=== PATIENT | male | born 1960 | race Caucasian/White ===

== ENCOUNTER → 2016-10-01 | Outpatient (CLI) | payer OTHER ==
[~2016-10-01] MED LIST: ASPI1TAB91 PO; CIPR-9 PO; COZA50TA PO; LIPI80TA PO; METO100T PO; METR-1 PO; NEUR300C PO; NOVO7030P2 SQ; TRAZ50TA12 PO
--- NOTE | 2016-10-01 17:04 | RADRPT ---
EXAM DATE/TIME: 10/01/2016 16:33 [facility] COMPARISON: No previous studies available for comparison. INDICATIONS : Right knee pain; fall 3 months ago. MEDICAL HISTORY : None. SURGICAL HISTORY : None. ENCOUNTER: Initial ACUITY: 3 months PAIN SCORE: 8/10 LOCATION: Right knee FINDINGS: Four view examination of the right knee demonstrates no evidence of fracture or dislocation. Bony mi neralization is normal. There are mild to moderate degenerative type changes. There is mild narrowing of the medial and lateral joint compartments. No joint effusion.. The suprapatellar soft tissues sexton ve a normal configuration. There are vascular calcifications in the soft tissues. CONCLUSION: 1. No acute fractures or dislocation. 2. Primary degenerative changes at the knee joint. Aguila Valadez MD on October 01, 2016 at 17:01 Board Certified Radiologist. This report was verified electronically.
--- NOTE | 2016-10-01 17:05 | RADRPT ---
EXAM DATE/TIME: 10/01/2016 16:36 [facility] COMPARISON: No previous studies available for comparison. INDICATIONS : Right lower leg pain; fall 3 months ago. MEDICAL HISTORY : None. SURGICAL HISTORY : None. ENCOUNTER: Initial ACUITY: 3 months PAIN SCORE: 8/10 LOCATION: Right lower leg. FINDINGS: Two view examination of the right tibia demonstrates no evidence of fracture or dislocation. Bony mi neralization is normal. The soft tissue structures are intact. There are vascular calcifications in the soft tissues. CONCLUSION: No acute fracture or joint dislocation. Aguila Valadez MD on October 01, 2016 at 17:02 Board Certified Radiologist. This report was verified electronically.
== END ==
LOC: HRAD 16:16
DX: M79.604 Pain in right leg (principal)
CPT/HCPCS: 73564; 73590

== ENCOUNTER 2017-07-06 23:01 | Emergency (ER) | payer OTHER ==
[~2017-07-06] VITALS: Ht 172.7 cm; Wt 111.0 kg
[~2017-07-06 23:01] MED LIST changes: -ASPI1TAB91 PO; +ASPI81TA16 PO
[2017-07-06 23:23] VITALS: BP 184/88; PULSE 76; RESP 18; TEMP 97.3; O2SAT 97
--- NOTE | 2017-07-07 00:47 | PD ---
HPI Chief Complaint: Hypertension Time Seen by Provider: 00:44 Travel History International Travel<30 days: No Contact w/Intl Traveler<30days: No Traveled to known affect area: No History of Present Illness HPI The patient is a 56 year old male who presents to the [facility] emergency department with a history of confusion and agitation that began at 9PM. His called ambulance services. He was evaluated by the paramedics and his bs was 53. He reports that he has never had problems with low blood sugar in the past. He is on insulin. He denies having an Accu-Chek monitor or checking his blood sugar at home. He ate and then his blood sugar improved however he was told his blood pressure was also high and they recommended that he be transported to the emergency department. He did not want to come to the emergency department, however his family later convinced him to do so. He has had headaches intermittently over the last couple day. He denies having one currently. The patient denies any history of fevers or chills, cough or congestion, neck pain or stiffness, chest pain, abdominal pain, vomiting, diarrhea, urinary symptoms, or other neurologic symptoms. However on review of systems he does report having shortness of breath occasionally. He has an implanted director of cardiac cath lab, however he is unsure why. He also reports being on Eliquis, however he is unsure why. PCP: Dr. Otero. Cardiology: Dr. Serra. 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 The patient is ambulatory with the assistance of a cane, history of hypertension, hyperlipidemia, chronic renal insufficiency. Arthritis: Yes (OA) High Cholesterol: Yes Cerebrovascular Accident: Yes Diabetes: Yes Patient Takes Glucophage: No Diminished Hearing: No Hypertension: Yes Neurologic: Yes (NEUROPATHY) Myocardial Infarction: Yes Renal Failure: Yes Tetanus Vaccination: < 5 Years Influenza Vaccination: Yes Past Surgical History Narrative Surgical The patient's past surgical history is significant for a loop recorder implant. Surgical History: No Previous Surgery Social History Alcohol Use: No (PT DENIES) Tobacco Use: No Substance Use: No Allergies-Medications (Allergen,Severity, Reaction): Coded Allergies: No Known Allergies (Verified Adverse Reaction, Unknown, 07/06/17) Reported Meds & Prescriptions Reported Meds & Active Scripts Active Lipitor (Atorvastatin Calcium) 80 Mg Tab 80 Mg PO HS Reported Novolog Inj (Insulin Aspart) 1,000 Unit/10 Ml Vial 21 Units SQ BID Procardia (Nifedipine) 10 Mg Cap 90 Mg PO ONCE Bumetanide 1 Mg Tab 1 Mg PO DAILY Gabapentin 600 Mg Tab 600 Mg PO TID Tramadol (Tramadol HCl) 50 Mg Tab 50 Mg PO Q4H PRN Eliquis (Apixaban) 2.5 Mg Tab 2.5 Mg PO BID Losartan (Losartan Potassium) 100 Mg Tab 100 Mg PO DAILY Carvedilol 12.5 Mg Tab 12.5 Mg PO BID Review of Systems Except as stated in HPI: all other systems reviewed are Neg General / Constitutional: No: Fever Eyes: No: Visual changes HENT: Positive: Headaches, No: Congestion, Neck Stiffness, Neck Pain Cardiovascular: Positive: Dyspnea on exertion, No: Chest Pain or Discomfort Respiratory: Positive: Shortness of Breath, No: Cough Gastrointestinal: No: Nausea, Vomiting, Diarrhea, Abdominal Pain Genitourinary: No: Dysuria Musculoskeletal: No: Pain Skin: No Rash Neurologic: Positive: Headache, No: Weakness, Focal Abnormalities, Change in Mentation, Slurred Speech, Sensory Disturbance Psychiatric: No: Depression Endocrine: No: Polydipsia Hematologic/Lymphatic: No: Easy Bruising Physical Exam Narrative General: The patient is a well-developed well-nourished male in no acute distress Head and Neck exam: Head is normocephalic atraumatic. Eyes: EOMI, pupils are equal round and reactive to light. Nose: Midline septum with pink mucous membranes Mouth: Dentition unremarkable. Moist mucus membranes. Posterior oropharynx is not erythematous. No tonsillar hypertrophy. Uvula midline. Airway patent. Neck: No palpable lymphadenopathy. No nuchal rigidity. No thyromegaly. Negative Brudzinski, negative Kernig sign. Cardiovascular: Regular rate and rhythm without murmurs, gallops, or rubs. No pulse deficit to the extremities on simultaneous auscultation and palpation of his radial artery. Lungs: Clear to auscultation bilaterally. No wheezes, rhonchi, or rales. Abdomen: Soft, without tenderness to palpation in all 4 quadrants of the abdomen. No guarding, rebound, or rigidity. Normal bowel sounds are audible. No tenderness on palpation of McBurney's point. Extremities: No clubbing or cyanosis. The patient does have trace pedal edema which he reports is chronic and intermittent. 2+ pulses in all 4 extremities. No calf tenderness on palpation. Back: No spinous process tenderness to palpation. No costovertebral angle tenderness to palpation. Neurologic Exam: Cranial nerves 2-12 were intact on exam. Strength is 4/5 in the right upper and right lower extremity related to his prior stroke, strength is 5/5 in the left upper and left lower extremity on exam. No sensory deficits noted. Skin Exam: No rash noted. Intact skin that is warm and dry. Data Data Last Documented VS Vital Signs Date Time Temp Pulse Resp B/P (MAP) Pulse Ox O2 Delivery O2 Flow Rate FiO2 07/07/17 01:30 74 15 219/109 (145) 99 Room Air 07/06/17 23:23 97.3 Orders Orders Electrocardiogram (07/07/17 01:02) Complete Blood Count With Diff (07/07/17:02) Comprehensive Metabolic Panel (07/07/17:02) Prothrombin Time / Inr (Pt) (07/07/17:02) Act Partial Throm Time (Ptt) (07/07/17 01:02) Urinalysis - C+S If Indicated (07/07/17:02) Magnesium (Mg) (07/07/17:02) Chest, Single Ap (07/07/17 01:02) Ct Brain W/O Iv Contrast(Rout) (07/07/17:02) Iv Access Insert/Monitor (07/07/17:02) Ecg Monitoring (07/07/17:02) Oximetry (07/07/17:02) Creatine Kinase (Cpk) (07/07/17:02) Ckmb (Isoenzyme) Profile (07/07/17:02) Troponin I (07/07/17:02) B-Type Natriuretic Peptide (07/07/17:02) CKMB (07/07/17:20) CKMB% (07/07/17 01:20) Labetalol Inj (Trandate Inj) (07/07/17 03:00) Labs Laboratory Tests Test 07/07/17 01:20 07/07/17 01:25 White Blood Count 10.7 TH/MM3 Red Blood Count 4.79 MIL/MM3 Hemoglobin 13.1 GM/DL Hematocrit 39.1 % Mean Corpuscular Volume 81.6 FL Mean Corpuscular Hemoglobin 27.4 PG Mean Corpuscular Hemoglobin Concent 33.5 % Red Cell Distribution Width 14.8 % Platelet Count 149 TH/MM3 Mean Platelet Volume 8.9 FL Neutrophils (%) (Auto) 84.1 % Lymphocytes (%) (Auto) 10.9 % Monocytes (%) (Auto) 3.7 % Eosinophils (%) (Auto) 0.5 % Basophils (%) (Auto) 0.8 % Neutrophils # (Auto) 9.0 TH/MM3 Lymphocytes # (Auto) 1.2 TH/MM3 Monocytes # (Auto) 0.4 TH/MM3 Eosinophils # (Auto) 0.1 TH/MM3 Basophils # (Auto) 0.1 TH/MM3 CBC Comment DIFF FINAL Differential Comment Prothrombin Time 10.8 SEC Prothromb Time International Ratio 1.1 RATIO Activated Partial Thromboplast Time 29.4 SEC Blood Urea Nitrogen 39 MG/DL Creatinine 2.54 MG/DL Random Glucose 217 MG/DL Total Protein 7.7 GM/DL Albumin 3.1 GM/DL Calcium Level 8.5 MG/DL Magnesium Level 1.8 MG/DL Alkaline Phosphatase 74 U/L Aspartate Amino Transf (AST/SGOT) 29 U/L Alanine Aminotransferase (ALT/SGPT) 26 U/L Total Bilirubin 0.5 MG/DL Sodium Level 138 MEQ/L Potassium Level 4.3 MEQ/L Chloride Level 103 MEQ/L Carbon Dioxide Level 26.3 MEQ/L Anion Gap 9 MEQ/L Estimat Glomerular Filtration Rate 26 ML/MIN Total Creatine Kinase 907 U/L Creatine Kinase MB 5.9 NG/ML Creatine Kinase MB % 0.7 % Troponin I 0.04 NG/ML B-Type Natriuretic Peptide 85 PG/ML Urine Color LIGHT-YELLOW Urine Turbidity CLEAR Urine pH 6.0 Urine Specific [place] 1.014 Urine Protein 300 mg/dL Urine Glucose (UA) TRACE mg/dL Urine Ketones NEG mg/dL Urine Occult Blood SMALL Urine Nitrite NEG Urine Bilirubin NEG Urine Urobilinogen LESS THAN 2.0 MG/DL Urine Leukocyte Esterase NEG Urine RBC 4 /hpf Urine WBC 1 /hpf Urine Squamous Epithelial Cells 1 /hpf Urine Bacteria RARE /hpf Urine Hyaline Casts 10 /lpf Urine Mucus FEW /lpf Microscopic Urinalysis Comment CULT NOT INDICATED MDM Medical Decision Making Medical Screen Exam Complete: Yes Emergency Medical Condition: Yes Medical Record Reviewed: Yes Interpretation(s) Last Impressions Head CT 07/07/17101 Signed Impressions: Service Date/Time: Friday, July 07, 2017 01:32 - CONCLUSION: No acute intracranial disease. Bryan France MD Chest X-Ray 07/07/17101 Signed Impressions: Service Date/Time: Friday, July 07, 2017 01:09 - CONCLUSION: No acute disease. Bryan France MD Differential Diagnosis Uncontrolled hypertension related to progression of disease versus renal insufficiency, versus medication noncompliance Narrative Course During the course of the patient's emergency department visit, the patient's history, examination, and differential diagnosis were reviewed with the patient. The patient was placed on a director of cardiac cath lab with oximetry and frequent blood pressure monitoring. The patient had IV access obtained and blood work sent for analysis. The patient had a EKG done on arrival that showed a sinus rhythm heart rate is 70, QRS duration 83 ms, QTC 435 ms, no acute ST segment elevation. The patient was initially provided labetalol 10 mg IV 1. The patient's laboratory studies were reviewed and remarkable for CBC & BMP Diagram 07/07/17 01:20 Total Protein 7.7, Albumin 3.1 L, Calcium Level 8.5, Magnesium Level 1.8, Alkaline Phosphatase 74, Aspartate Amino Transf (AST/SGOT) 29, Alanine Aminotransferase (ALT/SGPT) 26, Total Bilirubin 0.5 The patient's BUN and creatinine are slightly elevated compared to previously at 32 and 2.15 respectively from February 2016 which could be contributing to the patient's elevated blood pressure. The patient is given a copy of this lab to discuss further with his primary care physician. The patient's cardiac enzymes are remarkable for a CPK of 907, MB percent 0.7. The patient was given normal saline 500 mL bolus 1, BNP is 85, PT PTT within normal limits, urinalysis shows 300 protein small occult blood 4 RBCs otherwise unremarkable Radiology studies were reviewed and remarkable for a chest x-ray that shows no acute abnormality, CT scan of the brain shows no acute abnormality. The patient was instructed regarding the importance of following up with his primary care physician regarding his uncontrolled hypertension. The patient has no signs of hypertensive emergency. The patient was instructed to follow- up with his primary care physician in the morning for discussion regarding increasing 1 of his blood pressure medications for better control. The patient is resting comfortably and feels better, is alert and in no distress. The patient's results and examination findings were discussed with the patient. The repeat examination is unremarkable and benign. The history, exam, diagnostic testing, and current condition do not suggest any significant pathology to warrant further testing, continued ED treatment, admission, or surgical evaluation at this point. The vital signs have been stable. The patient does not have uncontrollable pain, intractable vomiting, or other significant symptoms. The patient's condition is stable and appropriate for discharge. The patient will pursue further outpatient evaluation with a primary care physician or other designated or consulting physician as indicated in the discharge instructions. The patient expressed understanding and was agreeable with this plan. Diagnosis Primary Impression: Uncontrolled hypertension Referrals: Primary Care Physician 1 day Patient Instructions: General Instructions, Hypertension (ED) Med/Other Pt SpecificInfo: No Change to Meds Disposition: 01 DISCHARGE HOME Condition: Stable Yulissa Raymond MD Jul 07, 2017 00:47
[2017-07-07] MEDS ORDERED: GABA600T PO (00:51)
[2017-07-07] MEDS ORDERED: TRAM50TA PO (00:51)
[2017-07-07] MEDS ORDERED: APIX2.5T PO (00:51)
[2017-07-07] MEDS ORDERED: LOSA100T PO (00:51)
[2017-07-07] MEDS ORDERED: NIFE10 PO (00:51)
[2017-07-07] MEDS ORDERED: BUME1TAB PO (00:51)
[2017-07-07] MEDS ORDERED: CARV12.52 PO (00:51)
[2017-07-07] MEDS ORDERED: NOVOLOGP2 SQ (00:51)
--- NOTE | 2017-07-07 01:25 | RADRPT ---
EXAM DATE/TIME: 07/07/2017 01:09 [facility] COMPARISON: CHEST SINGLE AP, March 16, 2016, 13:35. INDICATIONS : Shortness of breath. MEDICAL HISTORY : Hypertension. SURGICAL HISTORY : Loop recorder. ENCOUNTER: Initial ACUITY: 1 day PAIN SCORE: 0/10 LOCATION: Bilateral chest FINDINGS: A single view of the chest demonstrates the lungs to be symmetrically aerated without evidence of mas s, infiltrate or effusion. The cardiomediastinal contours are unremarkable. Loop recorder device see n along left lower chest. Osseous structures are intact. CONCLUSION: No acute disease. Bryan France MD on July 07, 2017 at 1:23 Board Certified Radiologist. This report was verified electronically.
[2017-07-07 01:29] VITALS: RESP 15; O2SAT 99
[2017-07-07 01:30] VITALS: BP 219/109; PULSE 74; RESP 15; O2SAT 99
[2017-07-07 01:41] LABS: BASOPHIL # 0.1 TH/MM3 (0-0.2); BASOPHIL % 0.8 % (0.0-2.0); EOSINOPHIL # 0.1 TH/MM3 (0-0.4); EOSINOPHIL % 0.5 % (0.0-4.0); HEMATOCRIT 39.1 % (39.0-51.0); HEMOGLOBIN 13.1 GM/DL (13.0-17.0); LYMPH % 10.9 % (9.0-44.0); LYMPHOCYTE # 1.2 TH/MM3 (1.0-4.8); MEAN CELL VOLUME 81.6 FL (80.0-100.0); MEAN CORPUSCULAR HEMOGLOBIN 27.4 PG (27.0-34.0); MEAN CORPUSCULAR HGB CONC 33.5 % (32.0-36.0); MEAN PLATELET VOLUME 8.9 FL (7.0-11.0); MONO % 3.7 % (0.0-8.0); MONOCYTE # 0.4 TH/MM3 (0-0.9); NEUT % 84.1 % (16.0-70.0); PLATELET COUNT 149 TH/MM3 (150-450); RED BLOOD COUNT 4.79 MIL/MM3 (4.50-5.90); RED CELL DISTRIBUTION WIDTH 14.8 % (11.6-17.2); WHITE BLOOD COUNT 10.7 TH/MM3 (4.0-11.0)
[2017-07-07 01:52] LABS: BACTERIA, URINE RARE /hpf; BILIRUBIN, URINE NEG (NEG); BLOOD, URINE SMALL (NEG); GLUCOSE,URINE TRACE mg/dL (NEG); HYALINE CAST, URINE 10 /lpf (RARE); KETONE, URINE NEG (NEG); MUCUS URINE FEW /lpf (OCC); NITRITE,URINE NEG (NEG); SQUAMOUS EPITHELIAL CELL URINE 1 /hpf (0-5); URINE COLOR LIGHT-YELLOW (YELLW/STRAW); URINE LEUKOCYTE ESTERASE NEG (NEG)
[2017-07-07 01:56] LABS: INTERNATIONAL NORMALIZED RATIO 1.1 RATIO; PROTHROMBIN TIME - PATIENT 10.8 SEC (9.8-11.6)
[2017-07-07 01:59] LABS: ALBUMIN 3.1 GM/DL (3.4-5.0); ALT (GPT) 26 U/L (12-78); AST (GOT) 29 U/L (15-37); BICARBONATE 26.3 MEQ/L (21.0-32.0); BLOOD UREA NITROGEN 39 MG/DL (7-18); CALCIUM 8.5 MG/DL (8.5-10.1); CHLORIDE 103 MEQ/L (98-107); CREATININE 2.54 MG/DL (0.60-1.30); GLOMERULAR FILTRATION RATE 26 ML/MIN (>89); GLUCOSE,RANDOM 217 MG/DL (74-106); MAGNESIUM 1.8 MG/DL (1.5-2.5); SODIUM (NA) 138 MEQ/L (136-145)
[2017-07-07 02:03] LABS: ALKALINE PHOSPHATASE 74 U/L (45-117); TOTAL BILIRUBIN ADULT 0.5 MG/DL (0.2-1.0); TOTAL PROTEIN 7.7 GM/DL (6.4-8.2); TROPONIN I 0.04 NG/ML (0.02-0.05)
--- NOTE | 2017-07-07 02:16 | RADRPT ---
EXAM DATE/TIME: 07/07/2017 01:32 [facility] COMPARISON: No previous studies available for comparison. INDICATIONS : Cephalgia. RADIATION DOSE: 56.77 CTDIvol (mGy) MEDICAL HISTORY : Stroke. Hypertension. Cardiovascular disease SURGICAL HISTORY : None. ENCOUNTER: Initial ACUITY: 1 day PAIN SCALE: 4/10 LOCATION: cranial TECHNIQUE: Multiple contiguous axial images were obtained of the head. Using automated exposure control and adj ustment of the mA and/or kV according to patient size, radiation dose was kept as low as reasonably a chievable to obtain optimal diagnostic quality images. DICOM format image data is available electro nically for review and comparison. FINDINGS: CEREBRUM: The ventricles are normal for age. No evidence of midline shift, mass lesion, hemorrhage or acute in farction. No extra-axial fluid collections are seen. POSTERIOR FOSSA: The cerebellum and brainstem are intact. The 4th ventricle is midline. The cerebellopontine angle i s unremarkable. EXTRACRANIAL: The visualized portion of the orbits is intact. SKULL: The calvaria is intact. No evidence of skull fracture. CONCLUSION: No acute intracranial disease. Bryan France MD on July 07, 2017 at 2:14 Board Certified Radiologist. This report was verified electronically.
[2017-07-07] MEDS ORDERED: LABETALOL HCL 100 MG/20 ML VIAL IV PUSH ONE (03:00)
[2017-07-07 03:59] VITALS: BP 198/90; PULSE 74; RESP 16; O2SAT 100
[2017-07-07] MEDS ORDERED: SODIUM CHLORID 0.9% 500 ML INJ 500 ML IV ONE (04:00)
[2017-07-07 04:54] VITALS: BP 196/94; PULSE 76; RESP 15; O2SAT 100
--- NOTE | 2017-07-07 21:18 | EKG ---
Date Performed: 07/07/2017 Time Performed: 01:45:50 PTAGE: 56 years EKG: Sinus rhythm NONSPECIFIC T-WAVE ABNORMALITY ABNORMAL ECG PREVIOUS TRACING : 03/16/2016 13.07 Since the previous tracing, no significant change noted DOCTOR: Davy Gibson Interpretating Date/Time 07/07/2017 21:16:35
== END 2017-07-07 06:24 | disposition home or self-care (01) ==
LOC: NEPE 23:01
DX: I10 Essential (primary) hypertension (principal); R51 Headache; R06.02 Shortness of breath; R94.31 Abnormal electrocardiogram [ECG] [EKG]; I69.951 Hemiplegia and hemiparesis following unspecified cerebrovascular disease affecting right dominant side; I12.9 Hypertensive chronic kidney disease with stage 1 through stage 4 chronic kidney disease, or unspecified chronic kidney disease; E11.22 Type 2 diabetes mellitus with diabetic chronic kidney disease; N18.9 Chronic kidney disease, unspecified; E11.40 Type 2 diabetes mellitus with diabetic neuropathy, unspecified
CPT/HCPCS: 70450; 71045; 80053; 81001; 82550; 82552; 83735; 83880; 84484; 85025; 85610; 85730; 93005; 96361; 96374; 99285; J7040

== ENCOUNTER 2018-02-02 10:39 | Observation (INO) ==
--- NOTE | 2018-02-02 11:12 | ED ---
HPI General Chief complaint: Chest Pain Stated complaint: chest pain Time Seen by Provider: 02/02/18 10:46 History of Present Illness HPI narrative: Patient 57-year-old male with a history of NSTEMI in 2016, COPD presents the emergency department for evaluation of shortness of breath and a vague chest discomfort. States his been going on for the past 3 days. Also endorses a cough, worse when he is laying down. Patient also endorses some significant leg swelling states is been going on for a while on and off, typically worse at the end of the day. States symptoms are moderate, for the past few days, context as above, associated signs symptoms as above. Related Data Home Medications Medication Instructions Recorded Confirmed apixaban [Eliquis] 2.5 mg PO BID 02/02/18 02/02/18 atorvastatin 80 mg PO DAILY 02/02/18 02/02/18 bumetanide 1 mg PO DAILY 02/02/18 02/02/18 carvedilol 12.5 mg PO BID 02/02/18 02/02/18 gabapentin 600 mg PO TID 02/02/18 02/02/18 insulin aspart U-100 [Novolog 21 unit SUBCUT BID 02/02/18 02/02/18 U-100 Insulin aspart] losartan 100 mg PO DAILY 02/02/18 02/02/18 nifedipine 90 mg PO DAILY 02/02/18 02/02/18 Allergies Allergy/AdvReac Type Severity Reaction Status Date / Time No Known Allergies Allergy Verified 02/02/18 10:45 Review of Systems ROS: all other systems reviewed are negative [facility] Medical History Medical History CVA (cerebral vascular accident) (Acute) Depression (Acute) Diabetes (Acute) HTN (hypertension) (Acute) Hyperlipidemia (Acute) NSTEMI (non-ST elevated myocardial infarction) (Acute) Renal insufficiency (Acute) Suicidal ideations (Acute) Surgical History Surgical History History of loop recorder (Acute) Social History Social History Substance History: No History of Abuse Second Hand Smoke Exposure: No Smoking Status: Never smoker How Often Do You Have a Drink Containing Alcohol: Monthly or less Recent Travel in [facility] within the Last 8 Weeks: No Recent Out of Country Travel within the Last 8 Weeks: No Immunization History Tetanus Immunization: <5 Years Exam Const General: healthy appearing and no acute distress HENMT Face and sinus: normal facial exam Eyes General: appearance normal, both eyes and all related structures Pupils: PERRL Chest Chest: normal inspection of the chest Resp Effort & Inspection: normal respiratory effort Auscultation: no rhonchi and no wheezes Cardio Rate: regular rate Rhythm: regular rhythm GI Inspection: non-distended Palpation: soft and nontender Skin General: no rashes or lesions noted Neuro General: alert, awake, oriented x3 and no focal motor deficits Extrem Other: 2-3+ pitting edema to groin bilaterally Psych Affect: normal affect Course Initial Documented Vital Signs Temperature 98.7 F 02/02/18 10:50 Pulse Rate 80 02/02/18 10:50 Blood Pressure 176/101 H 02/02/18 10:50 Pulse Oximetry 96 02/02/18 10:50 Last Documented Vital Signs Temperature 97.7 F 02/03/18 08:00 Pulse Rate 67 02/03/18 08:00 Respiratory Rate 16 02/03/18 08:00 Blood Pressure 190/94 H 02/03/18 08:00 Pulse Oximetry 99 02/03/18 08:00 Sign Out Sign Out Data: Patient Sign Out occurred on 02/02/18 at 15:16. Patient's care was discussed, and care was transferred from Ron Astorga MD to Lizeth Duvall DO. Sign Out Comment: Follow-up VQ scan, patient probably needs observation status for chest pain, consider chest pain center or admission given pedal edema. Last updated by Ron Astorga MD at 02/02/18 15:08 Post-Handoff Eval: Patient received during sign-out from Dr. Astorga; patient is a 57yM presenting with left-sided chest pain and dyspnea/ orthopnea for the past several weeks, worse over the past 2-3 days. He has a history of NSTEMI in 2016 and was seen by Dr. Long but says that he hasn't followed up for a while because of transportation issues. He reported that his chest pain resolved with nitroglycerin. His workup shows trop negative x 2, creatinine at baseline, CXR and US duplex negative, and VQ scan shows low likelihood of PE. Will place patient in chest pain center for further workup. Patient understands and agrees. Clinical Decision Support HEART Score Questions History: Highly suspicious EKG: Normal Age: 45-64 years Risk Factors: 1-2 Risk Factors Initial Troponin: Normal Limit Heart Score HEART Score: 4 Medical Decision Making MDM Narrative Medical decision making narrative: 57yM presenting with chest pain, will keep for chest pain observation Medical Screen Exam Complete: Yes Emergency Medical Condition: Yes Lab Data Result diagrams: 02/02/18 11:10 02/02/18 11:10 Lab Results 02/02/18 02/02/18 02/02/18 Range/Units 11:10 11:10 11:10 WBC 7.3 (4.0-11.0) th/mm3 RBC 4.51 (4.50-5.90) mil/mm3 Hgb 12.9 L (13.0-17.0) gm/dL Hct 38.9 L (39.0-51.0) % MCV 86.4 (80.0-100.0) fL MCH 28.6 (27.0-34.0) pg MCHC 33.1 (32.0-36.0) % RDW 14.9 (11.6-17.2) % Plt Count 140 L (150-450) th/mm3 MPV 8.7 (7.0-11.0) fL Neut % (Auto) 70.2 H (16.0-70.0) % Lymph % (Auto) 20.1 (9.0-44.0) % [place]ord % (Auto) 6.8 (0.0-8.0) % Eos % (Auto) 2.3 (0.0-4.0) % Baso % (Auto) 0.6 (0.0-2.0) % Neut # (Auto) 5.1 (1.8-7.7) th/mm3 Lymph # (Auto) 1.5 (1.0-4.8) th/mm3 [place]ackelford # (Auto) 0.5 (0.0-0.9) th/mm3 Eos # (Auto) 0.2 (0.0-0.4) th/mm3 Baso # (Auto) 0.0 (0.0-0.2) th/mm3 WBC Differential . Differential Comment Auto diff final D-Dimer Quant (PE/DVT) 1.32 H (0.00-0.50) mg/L FEU Sodium 143 (136-145) meq/L Potassium 4.6 (3.5-5.1) meq/L Chloride 108 H (98-107) meq/L Carbon Dioxide 27.0 (21.0-32.0) meq/L Anion Gap 8 (5-15) meq/L BUN 27 H (7-18) mg/dL Creatinine 1.90 H (0.60-1.30) mg/dL Estimated GFR 44 L (>89) mL/min POC Glucose (68-110) mg/dl Random Glucose 140 H (74-106) mg/dL Calcium 8.8 (8.5-10.1) mg/dL Total Bilirubin 0.5 (0.2-1.0) mg/dL AST 29 (15-37) U/L ALT 27 (12-78) U/L Alkaline Phosphatase 78 (45-117) U/L Total Creatine Kinase (39-308) U/L CK-MB (CK-2) (0.5-3.6) ng/mL CK-MB (CK-2) % (0.0-4.0) % Troponin I 0.03 (0.02-0.05) ng/mL B-Natriuretic Peptide (0-100) pg/mL Total Protein 7.7 (6.4-8.2) g/dL Albumin 3.2 L (3.4-5.0) g/dL 02/02/18 02/02/18 02/02/18 Range/Units 11:56 14:01 17:14 WBC (4.0-11.0) th/mm3 RBC (4.50-5.90) mil/mm3 Hgb (13.0-17.0) gm/dL Hct (39.0-51.0) % MCV (80.0-100.0) fL MCH (27.0-34.0) pg MCHC (32.0-36.0) % RDW (11.6-17.2) % Plt Count (150-450) th/mm3 MPV (7.0-11.0) fL Neut % (Auto) (16.0-70.0) % Lymph % (Auto) (9.0-44.0) % Shackelford % (Auto) (0.0-8.0) % Eos % (Auto) (0.0-4.0) % Baso % (Auto) (0.0-2.0) % Neut # (Auto) (1.8-7.7) th/mm3 Lymph # (Auto) (1.0-4.8) th/mm3 [place]ackelford # (Auto) (0.0-0.9) th/mm3 Eos # (Auto) (0.0-0.4) th/mm3 Baso # (Auto) (0.0-0.2) th/mm3 WBC Differential Differential Comment D-Dimer Quant (PE/DVT) (0.00-0.50) mg/L FEU Sodium (136-145) meq/L Potassium (3.5-5.1) meq/L Chloride (98-107) meq/L Carbon Dioxide (21.0-32.0) meq/L Anion Gap (5-15) meq/L BUN (7-18) mg/dL Creatinine (0.60-1.30) mg/dL Estimated GFR (>89) mL/min POC Glucose (68-110) mg/dl Random Glucose (74-106) mg/dL Calcium (8.5-10.1) mg/dL Total Bilirubin (0.2-1.0) mg/dL AST (15-37) U/L ALT (12-78) U/L Alkaline Phosphatase (45-117) U/L Total Creatine Kinase 626 H (39-308) U/L CK-MB (CK-2) 3.1 (0.5-3.6) ng/mL CK-MB (CK-2) % 0.5 (0.0-4.0) % Troponin I 0.03 0.04 (0.02-0.05) ng/mL B-Natriuretic Peptide 86 (0-100) pg/mL Total Protein (6.4-8.2) g/dL Albumin (3.4-5.0) g/dL 02/02/18 02/03/18 Range/Units 21:14 08:18 WBC (4.0-11.0) th/mm3 RBC (4.50-5.90) mil/mm3 Hgb (13.0-17.0) gm/dL Hct (39.0-51.0) % MCV (80.0-100.0) fL MCH (27.0-34.0) pg MCHC (32.0-36.0) % RDW (11.6-17.2) % Plt Count (150-450) th/mm3 MPV (7.0-11.0) fL Neut % (Auto) (16.0-70.0) % Lymph % (Auto) (9.0-44.0) % [place]ord % (Auto) (0.0-8.0) % Eos % (Auto) (0.0-4.0) % Baso % (Auto) (0.0-2.0) % Neut # (Auto) (1.8-7.7) th/mm3 Lymph # (Auto) (1.0-4.8) th/mm3 [place]ack[place]ord # (Auto) (0.0-0.9) th/mm3 Eos # (Auto) (0.0-0.4) th/mm3 Baso # (Auto) (0.0-0.2) th/mm3 WBC Differential Differential Comment D-Dimer Quant (PE/DVT) (0.00-0.50) mg/L FEU Sodium (136-145) meq/L Potassium (3.5-5.1) meq/L Chloride (98-107) meq/L Carbon Dioxide (21.0-32.0) meq/L Anion Gap (5-15) meq/L BUN (7-18) mg/dL Creatinine (0.60-1.30) mg/dL Estimated GFR (>89) mL/min POC Glucose 209 H 156 H (68-110) mg/dl Random Glucose (74-106) mg/dL Calcium (8.5-10.1) mg/dL Total Bilirubin (0.2-1.0) mg/dL AST (15-37) U/L ALT (12-78) U/L Alkaline Phosphatase (45-117) U/L Total Creatine Kinase (39-308) U/L CK-MB (CK-2) (0.5-3.6) ng/mL CK-MB (CK-2) % (0.0-4.0) % Troponin I (0.02-0.05) ng/mL B-Natriuretic Peptide (0-100) pg/mL Total Protein (6.4-8.2) g/dL Albumin (3.4-5.0) g/dL Imaging Data Radiologist's impression: Chest X-Ray 02/02/18 11:05 CONCLUSION: 1. No acute abnormality or significant interval change. Venous Doppler Study 02/02/18 12:10 CONCLUSION: 1. No sonographic evidence for lower extremity DVT. Pulmonary Perfusion Imaging 02/02/18 12:28 CONCLUSION: Low probability of pulmonary embolism. ECG Data Attestation: I personally reviewed and interpreted this ECG as follows: Interpretation: Rate: 74 BPM Rhythm: Sinus Webster: Normal Intervals: Normal intervals, no blocks, QTc 390 ms Q waves: None T waves: Upright, no inversions ST segments: No elevations or depressions Impression: Non-specific EKG, no changes as compared to EKG from earlier today Discharge Plan Discharge Disposition Patient Disposition: 30 Still Patient Discharge Condition Condition: Stable Discharge Details Diagnosis: Chest pain Physicians Team ED Provider: Lizeth Duvall Primary Care Provider: Primary Care Physici,No Attending Provider: Miki Decker Other Providers: Edson Higgins Ricardy Status ED Status: Left Department Discharge Information Discharge Date/Time: 02/02/18 18:00
[2018-02-02 11:26] LABS: Baso % (Auto) 0.6 % (0.0-2.0); Eos # (Auto) 0.2 th/mm3 (0.0-0.4); Eos % (Auto) 2.3 % (0.0-4.0); Hematocrit 38.9 % (39.0-51.0); Hemoglobin 12.9 gm/dL (13.0-17.0); Lymph # (Auto) 1.5 th/mm3 (1.0-4.8); Lymph % (Auto) 20.1 % (9.0-44.0); Mean Corpuscular HGB Conc 33.1 % (32.0-36.0); Mean Corpuscular Hemoglobin 28.6 pg (27.0-34.0); Mean Corpuscular Volume 86.4 fL (80.0-100.0); Mean Platelet Volume 8.7 fL (7.0-11.0); Mono # (Auto) 0.5 th/mm3 (0.0-0.9); Mono % (Auto) 6.8 % (0.0-8.0); Neut # (Auto) 5.1 th/mm3 (1.8-7.7); Neut % (Auto) 70.2 % (16.0-70.0); Platelet Count 140 th/mm3 (150-450); Red Blood Count 4.51 mil/mm3 (4.50-5.90); Red Cell Distribution Width 14.9 % (11.6-17.2); White Blood Count 7.3 th/mm3 (4.0-11.0)
[2018-02-02 11:47] LABS: Alanine Aminotransferase 27 U/L (12-78); Albumin 3.2 g/dL (3.4-5.0); Anion Gap 8 meq/L (5-15); Aspartate Aminotransferase 29 U/L (15-37); Blood Urea Nitrogen 27 mg/dL (7-18); Calcium 8.8 mg/dL (8.5-10.1); Chloride 108 meq/L (98-107); Glomerular Filtration Rate 44 mL/min (>89); Glucose,Random 140 mg/dL (74-106); Potassium 4.6 meq/L (3.5-5.1); Sodium 143 meq/L (136-145)
[2018-02-02 11:51] LABS: Alkaline Phosphatase 78 U/L (45-117); Total Protein 7.7 g/dL (6.4-8.2); Troponin I 0.03 ng/mL (0.02-0.05)
--- NOTE | 2018-02-02 11:59 | XR ---
EXAM DATE: 02/02/2018 11:46 AM EST AGE/SEX: 57 years / Male INDICATIONS: Chest tightness post heart attack 2 weeks ago. CLINICAL DATA: This is the patient's initial encounter. Patient reports that signs and symptoms have been present for 1 day and indicates a pain score of 7/10. MEDICAL/SURGICAL HISTORY: . Stroke. Hypertension. Cardiovascular disease None. COMPARISON: [facility] [place], CHEST SINGLE AP, 07/07/2017. . FINDINGS: No new focal pleural or parenchymal opacities. The cardiomediastinal contours are unremarkable. Osse ous structures are intact. CONCLUSION: 1. No acute abnormality or significant interval change. Electronically signed by: Kenneth Wooten MD 02/02/2018 11:58 AM EST
--- NOTE | 2018-02-02 13:29 | US ---
EXAM DATE: 02/02/2018 1:26 PM EST AGE/SEX: 57 years / Male INDICATIONS: Bilateral leg pain and swelling. CLINICAL DATA: This is the patient's initial encounter. Patient reports that signs and symptoms have been present for 1 month and indicates a pain score of 8/10. MEDICAL/SURGICAL HISTORY: Congestive heart failure. Chronic obstructive pulmonary disease. Di abetes. CVA. Myocardial infarct. Anticoagulant therapy, Eliquis. . Loop recorder. COMPARISON: No prior exams available for comparison. TECHNIQUE: Venous ultrasound of both lower extremities was performed from the inguinal ligament to t he proximal calf. Real-time, color Doppler and spectral tracing, compression and augmentation techni ques were used. FINDINGS: Right Leg: Normal compression of the deep venous system from the inguinal region to the proximal kathy f. No echogenic clot is seen. Normal response of the venous system to augmentation and respiration. Left Leg: Normal compression of the deep venous system from the inguinal region to the proximal calf . No echogenic clot is seen. Normal response of the venous system to augmentation and respiration. Other: None. CONCLUSION: 1. No sonographic evidence for lower extremity DVT. Electronically signed by: Kenneth Wooten MD 02/02/2018 1:28 PM EST
[2018-02-02] MEDS ORDERED: Carvedilol 12.5 MG Tablet PO ONE (13:51)
--- NOTE | 2018-02-02 15:33 | NM ---
EXAM DATE: 02/02/2018 3:22 PM EST AGE/SEX: 57 years / Male INDICATIONS: Dyspnea with chest pain. CLINICAL DATA: This is the patient's initial encounter. Patient reports that signs and symptoms have been present for 3 days and indicates a pain score of 0/10. MEDICAL/SURGICAL HISTORY: Chronic obstructive pulmonary disease. Myocardial infarction. Conge stive heart failure. Hypertension, diabetes and stroke. . Loop recorder. COMPARISON: No prior exams available for comparison. DOSE: 1.1 mCi Tc99m DTPA aerosol 8.8 mCi Tc99m MAA IV TECHNIQUE: Following five minutes of tidal breathing of DTPA aerosol, planar images of the lungs wer e performed in eight projections. The patient was then injected with MAA, and eight-view perfusion s can was performed. FINDINGS: There is a homogeneous pattern of aerosol delivery to the periphery of both lungs. No focal ventilat ory defects are seen. The perfusion lung scan demonstrates a homogenous pattern of uptake in both lungs. No segmental or s ubsegmental defects are seen. CONCLUSION: Low probability of pulmonary embolism. Electronically signed by: Rich Rush MD 02/02/2018 3:32 PM EST
[2018-02-02] MEDS: Aspirin 325 MG Tablet PO SCH (15:55)
[2018-02-02] MEDS ORDERED: Labetalol HCl Inj 100 MG/20 ML Vial IV.PUSH ONE (16:30)
[2018-02-02] MEDS ORDERED: Acetaminophen 500 MG Tablet PO PRN (16:44)
[2018-02-02] MEDS ORDERED: Morphine Inj 4 MG/ML Vial IV.PUSH PRN (17:11)
[2018-02-02] MEDS ORDERED: Dextrose 50% in Water 50 ML Vial IV.PUSH PRN (17:14)
--- NOTE | 2018-02-02 17:41 | P.HPCA ---
History of Present Illness Primary Care Physician: No Primary Care Physician Chief Complaint: Chest and right leg pain History of Present Illness: 57 year old male with history of hypertension, diabetes, hyperlipidemia, chronic pain, and CVA with right sided deficit presents to ER for further evaluation of chest pain, gasping for breath that awakens him from sleep and worsening chronic right leg pain. Onset x3 last morning. Awaken each morning with sensation of "gasping for breath" with accompanied chest pain. Location left anterior chest. Characterized as "thumping." Duration 10-15 minutes, reports chest discomfort resolves once breathing stabilizes. No associated symptoms of nausea, vomiting, dyspnea, or diaphoresis. Denies other times of chest discomfort or dyspnea. Endorses similar sensation of dyspnea/chest discomfort "awhile ago" states "I didn't think much of it." In regards of right leg pain, endorses chronic right leg for "at least one year." States he does not have the money for ordered injection for chronic leg pain. States he is prescribed Tramadol for pain, but "it does work at all." Patient is tearful during exam, appears depressed. Reports currently situational stress over the last month. Endorses recent suicidal ideations without plan. No recent illness, injury, or fever. Intermittent chills. Past cardiac testing No recent cardiac testing. Reports nuclear cardiac testing approximately one year ago reports to be normal. Denies ever having a cardiac catheterization. Follows with Dr. Guillen. Due to multiple insurance changes, has not recently seen a pattern technician. Documented NSTEMI February 2016, felt to be related to hypertension 03/17/2016 Echocardiogram-systolic function normal. EF 55-60%. Social history Known hypertension, hyperlipidemia, and diabetes. No known CAD, NSTEMI 2015 possibly related to elevated blood pressure. Ambulated with a cane. Recently from and in transition to moving in with sister. - Diagnosis (1) Atypical chest pain (2) Hypertension (3) Type 2 diabetes mellitus (4) Chronic pain (5) Suicidal ideation (6) Hyperlipemia (7) Renal insufficiency Review of Systems All other systems reviewed negative except as stated in HPI 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, Gate Agent / EMT - Medical History Medical History: Medical History (Last Updated 02/02/18 @ 17:19 by MYCHAL Nino) CVA (cerebral vascular accident) Depression Diabetes HTN (hypertension) Hyperlipidemia NSTEMI (non-ST elevated myocardial infarction) Renal insufficiency Suicidal ideations - Surgical History Surgical History: Surgical History (Last Reviewed 02/02/18 @ 17:19 by MYCHAL Nino) History of loop recorder - Tobacco History Second Hand Smoke Exposure: No Tobacco Use In Past 30 Days: No Smoking Status: Never smoker - Alcohol History How Often Do You Have a Drink Containing Alcohol: Monthly or less - Substance Use History Substance History: No History of Abuse - Travel History Recent Travel in the [place] Within the Last 8 Weeks: No Recent Travel Out of the Country Within the Last 8 Weeks: No - Immunization History Tetanus Immunization: <5 Years Medications and Allergies Active Medications: Active Medications Acetaminophen (Tylenol) 500 mg PO Q4H PRN PRN Reason: HEADACHE Aspirin (Aspirin) 325 mg PO DAILY KATELYN Last Admin: 02/02/18 15:55 Dose: Not Given Clonidine HCl (Catapres) 0.2 mg PO Q6H PRN PRN Reason: SYS BP GREATER THAN 180 MMHG Dextrose (D50w Vial) 50 ml IV.PUSH UNSCH PRN PRN Reason: PER HYPOGLYCEMIA PROTOCOL Glucagon (Glucagon Inj) 1 mg OTHER PRN PRN PRN Reason: for Hypoglycemia Protocol Insulin Aspart (Novolog Insulin Correctional Sugar Inj) 0 unit SQ ACHS KATELYN; Protocol Morphine Sulfate (Morphine Inj) 4 mg IV.PUSH Q4H PRN PRN Reason: Acute Pain Nitroglycerin (Nitrostat Sl) 0.4 mg SL Q5M PRN PRN Reason: CHEST PAIN Ondansetron HCl (Zofran Inj) 4 mg IV.PUSH Q6H PRN PRN Reason: NAUSEA Sodium Chloride (Ns Flush) 2 ml IV.FLUSH UNSCH PRN PRN Reason: FLUSH AFTER USING IV ACCESS Sodium Chloride (Ns Flush) 2 ml IV.FLUSH BID KATELYN Sodium Chloride (Ns Flush) 2 ml IV.FLUSH PRN PRN PRN Reason: FLUSH AFTER USING IV ACCESS Allergies Allergy/AdvReac Type Severity Reaction Status Date / Time No Known Allergies Allergy Verified 02/02/18 10:45 Home Medications Medication Instructions Recorded Confirmed Type apixaban [Eliquis] 2.5 mg PO BID 02/02/18 02/02/18 History atorvastatin 80 mg PO DAILY 02/02/18 02/02/18 History bumetanide 1 mg PO DAILY 02/02/18 02/02/18 History carvedilol 12.5 mg PO BID 02/02/18 02/02/18 History gabapentin 600 mg PO TID 02/02/18 02/02/18 History insulin aspart U-100 [Novolog 21 unit SUBCUT BID 02/02/18 02/02/18 History U-100 Insulin aspart] losartan 100 mg PO DAILY 02/02/18 02/02/18 History nifedipine 90 mg PO DAILY 02/02/18 02/02/18 History Exam Vital signs: Vital Signs 02/02/18 10:50 02/02/18 11:41 02/02/18 13:00 Temperature 98.7 F Pulse Rate 80 68 78 Respiratory Rate 21 Blood Pressure 176/101 H 201/92 H Pulse Oximetry 96 96 100 02/02/18 13:35 02/02/18 14:34 02/02/18 15:28 Temperature Pulse Rate 77 68 Respiratory Rate 19 Blood Pressure 193/95 H 183/88 H 186/88 H Pulse Oximetry 100 97 02/02/18 16:27 Temperature Pulse Rate 68 Respiratory Rate 21 Blood Pressure 178/91 H Pulse Oximetry 98 Intake & Output 02/01/18 02/02/18 02/02/18 18:59 06:59 18:59 Weight 121.563 kg Narrative: GENERAL: Alert WN, WD, NAD, obese male who appears uncomfortable in the bed despite multiple position changes. HEAD: NC, AT CV: RRR, without murmur, rub, gallop, no JVD, S1-S2. Chest wall nontender with palpation. RESP: Clear lungs throughout bilateral, no crackles, wheeze, rhonchi, symmetrical chest rise, nonlabored, able to speak in full sentences ABD: Soft, NT, ND, no masses, positive bowel tones, obese EXT: Pulses +2x4, +2 pitting edema right lower extremity, dependent edema left lower extremity MS: Normal tone x4 extremities, nontender, no obvious deformities, full range of motion NEURO: CN II through CN XII grossly intact, right lower extremity slight weaker than left PSYCH: A+O x3, flat affect, appropriate speech, depressed mood, questionable insight and judgment, tearful during exam, makes little to no eye contact SKIN: Normal turgor, normal texture, no lesions, no rashes Results 02/02/18 11:10 02/02/18 11:10 Cardiac Enzymes 02/02/18 02/02/18 02/02/18 Range/Units 11:10 11:56 14:01 AST 29 (15-37) U/L Troponin I 0.03 0.03 (0.02-0.05) ng/mL B-Natriuretic Peptide 86 (0-100) pg/mL Coagulation 02/02/18 Range/Units 11:56 B-Natriuretic Peptide 86 (0-100) pg/mL CBC 02/02/18 Range/Units 11:10 WBC 7.3 (4.0-11.0) th/mm3 RBC 4.51 (4.50-5.90) mil/mm3 Hgb 12.9 L (13.0-17.0) gm/dL Hct 38.9 L (39.0-51.0) % Plt Count 140 L (150-450) th/mm3 Neut # (Auto) 5.1 (1.8-7.7) th/mm3 Lymph # (Auto) 1.5 (1.0-4.8) th/mm3 [place] # (Auto) 0.5 (0.0-0.9) th/mm3 Eos # (Auto) 0.2 (0.0-0.4) th/mm3 Baso # (Auto) 0.0 (0.0-0.2) th/mm3 Comprehensive Metabolic Panel 02/02/18 Range/Units 11:10 Sodium 143 (136-145) meq/L Potassium 4.6 (3.5-5.1) meq/L Chloride 108 H (98-107) meq/L Carbon Dioxide 27.0 (21.0-32.0) meq/L BUN 27 H (7-18) mg/dL Creatinine 1.90 H (0.60-1.30) mg/dL Calcium 8.8 (8.5-10.1) mg/dL AST 29 (15-37) U/L ALT 27 (12-78) U/L Alkaline Phosphatase 78 (45-117) U/L Total Protein 7.7 (6.4-8.2) g/dL Albumin 3.2 L (3.4-5.0) g/dL Intake and Output 02/02/18 02/02/18 02/02/18 06:59 14:59 22:59 Other: Weight 121.563 kg Patient Weight 02/03/18 06:59 Weight 121.563 kg - Imaging and Cardiology Imaging: Impressions Chest X-Ray 02/02/18 11:05 CONCLUSION: 1. No acute abnormality or significant interval change. Venous Doppler Study 02/02/18 12:10 CONCLUSION: 1. No sonographic evidence for lower extremity DVT. Pulmonary Perfusion Imaging 02/02/18 12:28 CONCLUSION: Low probability of pulmonary embolism. EKG interpretations - EKG EKG results cardiology: sinus rhythm, normal axis, normal QRS (nonspecific st t ) Caprini VTE Risk Assessment Caprini VTE Risk Assessment: No/Low Risk (score <= 1) Caprini Risk Assessment Model: Point Value = 1 Point Value = 2 Point Value = 3 Point Value = 5 Age 41-60 Minor surgery BMI > 25 kg/m2 Swollen legs Varicose veins or History of unexplained or recurrent spontaneous Oral contraceptives or hormone replacement Sepsis (< 1 month) Serious lung disease, including pneumonia (< 1 month) Abnormal pulmonary function Acute myocardial infarction Congestive heart failure (< 1 month) History of inflammatory bowel disease Medical patient at bed rest Age 61-74 Arthroscopic surgery Major open surgery (> 45 min) Laparoscopic surgery (> 45 min) Malignancy Confined to bed (> 72 hours) Immobilizing plaster cast Central venous access Age >= 75 History of VTE Family history of VTE Factor V Leiden Prothrombin [id number] Lupus anticoagulant Anticardiolipin antibodies Elevated serum homocysteine Heparin-induced thrombocytopenia Other congenital or acquired thrombophilia Stroke (< 1 month) Elective arthroplasty Hip, pelvis, or leg fracture Acute spinal cord injury (< 1 month) Prophylaxis Regimen: Total Risk Factor Score Risk Level Prophylaxis Regimen 0-1 Low Early ambulation 2 Moderate Order ONE of the following: *Sequential Compression Device (SCD) *Heparin 5000 units SQ BID 3-4 Higher Order ONE of the following medications: *Heparin 5000 units SQ TID *Enoxaparin/Lovenox 40 mg SQ daily (WT < 150 kg, CrCl > 30 mL/min) *Enoxaparin/Lovenox 30 mg SQ daily (WT < 150 kg, CrCl > 10-29 mL/min) *Enoxaparin/Lovenox 30 mg SQ BID (WT < 150 kg, CrCl > 30 mL/min) AND/OR *Sequential Compression Device (SCD) 5 or more Highest Order ONE of the following medications: *Heparin 5000 units SQ TID (Preferred with Epidurals) *Enoxaparin/Lovenox 40 mg SQ daily (WT < 150 kg, CrCl > 30 mL/min) *Enoxaparin/Lovenox 30 mg SQ daily (WT < 150 kg, CrCl > 10-29 mL/min) *Enoxaparin/Lovenox 30 mg SQ BID (WT < 150 kg, CrCl > 30 mL/min) AND *Sequential Compression Device (SCD) Assessment and Plan - Assessment (1) Atypical chest pain Code(s): R07.89 - Other chest pain Status: Acute Plan: Admitted to chest pain center. Rule out ACS with 3 sets of EKGs and cardiac enzymes. Monitor overnight. Will be seen and evaluated by Dr. Eboni Fernandez in morning. Discomfort occurred each night, awakening him from sleep. Further disposition to follow after evaluation by pattern technician. If Lexiscan recommended , testing would be postponed due to recent V/Q scan completed today. Plans to call [facility] in morning to determine any recent cardiac testing that may have been completed there. (2) Hypertension Code(s): I10 - Essential (primary) hypertension Status: Acute Plan: Continue home medications, clonidine 0.2mg Q6H prn as needed for systolic bp greater than 180. (3) Type 2 diabetes mellitus Code(s): E11.9 - Type 2 diabetes mellitus without complications Status: Chronic Plan: SSI low dose coverage. Follow up with primary care provider upon discharge. (4) Chronic pain Code(s): G89.29 - Other chronic pain Status: Chronic Plan: Morphine 4mg IVP Q4H as needed for severe pain. (5) Suicidal ideation Code(s): R45.851 - Suicidal ideations Status: Acute Plan: Consult psychology for reported suicidal ideation without active plan. Discussed with supercharger repair supervisor who will request operation shift supervisor RN to perform a SADD scale to determine need for sitter. (6) Hyperlipemia Code(s): E78.5 - Hyperlipidemia, unspecified Status: Chronic Plan: Continue atorvastatin. (7) Renal insufficiency Code(s): N28.9 - Disorder of kidney and ureter, unspecified Status: Chronic Plan: Improved from June 2017, follow with primary care provider. (2) Hypertension Qualifiers: Hypertension type: unspecified Qualified Code(s): I10 - Essential (primary) hypertension (3) Type 2 diabetes mellitus Qualifiers: Diabetes mellitus assisted insulin use: unspecified computer terminal operator insulin use status Diabetes mellitus complication status: with unspecified complications Qualified Code(s): E11.8 - Type 2 diabetes mellitus with unspecified complications (4) Chronic pain Qualifiers: Chronic pain type: other chronic pain Qualified Code(s): G89.29 - Other chronic pain (6) Hyperlipemia Qualifiers: Hyperlipidemia type: unspecified Qualified Code(s): E78.5 - Hyperlipidemia, unspecified
--- NOTE | 2018-02-02 18:03 | ECG ---
Date Performed: 02/02/2018 Time Performed: 10:52:33 PTAGE: 57 years EKG: Sinus rhythm MODERATE VOLTAGE CRITERIA FOR LVH, CONSIDER NORMAL VARIANT NONSPECIFIC T-WAVE ABNORMALITY BORDERLINE ECG PREVIOUS TRACING : 07/07/2017 01.45 Since the previous tracing, no significant change noted DOCTOR: Volodymyr Gonzales Interpretating Date/Time 02/02/2018 18:02:04
[2018-02-02 18:07] LABS: Troponin I 0.04 ng/mL (0.02-0.05)
[2018-02-02 18:19] LABS: CKMB Percent 0.5 % (0.0-4.0); Creatine Kinase MB 3.1 ng/mL (0.5-3.6)
[2018-02-02] MEDS: Gabapentin 300 MG Capsule PO SCH (21:27)
[2018-02-02] MEDS: Carvedilol 12.5 MG Tablet PO SCH (21:28)
[2018-02-02] MEDS: Insulin NovoLOG Aspart Correctional Sugar Inj SQ SCH (21:28)
[2018-02-03] MEDS: Aspirin 325 MG Tablet PO SCH (08:11)
[2018-02-03] MEDS: Gabapentin 300 MG Capsule PO SCH ×3 (08:12→17:28)
[2018-02-03] MEDS: Carvedilol 12.5 MG Tablet PO SCH ×2 (08:13→23:50)
[2018-02-03] MEDS: Insulin NovoLOG Aspart Correctional Sugar Inj SQ SCH ×4 (09:28→23:51)
[2018-02-03 11:31] LABS: Bilirubin,Urine Negative (Negative); Clarity,Urine Clear (Clear); Color,Urine Straw (Yellw/Straw); Glucose,Urine (UA) Negative (Negative); Leukocyte Esterase,Urine Negative (Negative); Mucus,Urine Few /lpf (Occasional); Nitrite,Urine Negative (Negative); Specific Gravity,Urine 1.006 (1.002-1.035)
[2018-02-03 11:38] LABS: Amphetamine Screen,Urine Neg (Neg); Barbiturate Screen,Urine Neg (Neg); Cannabinoid Screen,Urine Neg (Neg)
[2018-02-03 11:42] LABS: Cocaine Screen,Urine Neg (Neg)
[2018-02-03 12:01] LABS: Opiate Screen,Urine Neg (Neg)
--- NOTE | 2018-02-03 13:37 | P.PNIM ---
Subjective Interval history: Late entry, patient seen earlier this morning. He reports the chest pain is improved. Right leg pain is better. He denies shortness of breath. He states he has been compliant with his medications at home. Physical Exam Vital signs: Vital Signs 02/02/18 14:34 02/02/18 15:28 02/02/18 16:27 Temperature Pulse Rate 68 68 Respiratory Rate 21 Blood Pressure 183/88 H 186/88 H 178/91 H Pulse Oximetry 97 98 02/02/18 17:21 02/02/18 18:24 02/02/18 20:00 Temperature 98.1 F 98.5 F Pulse Rate 66 73 65 Respiratory Rate 21 20 19 Blood Pressure 171/89 H 188/88 H 184/94 H Pulse Oximetry 99 98 95 02/03/18 00:00 02/03/18 04:00 02/03/18 08:00 Temperature 97.9 F 98.3 F 97.7 F Pulse Rate 68 70 64 Respiratory Rate 17 19 16 Blood Pressure 154/82 H 192/100 H 190/94 H Pulse Oximetry 98 100 99 02/03/18 09:00 Temperature Pulse Rate 65 Respiratory Rate Blood Pressure Pulse Oximetry Intake & Output 02/02/18 02/03/18 02/03/18 18:59 06:59 18:59 Output Total 600 / 600 Balance -600 / -600 Weight 112 kg 114.2 kg Output: Urine 600 / 600 Other: Date of Last Bowel Movement 02/01/18 02/01/18 Weight On Admission 112 kg Narrative: GENERAL: No acute distress. CV: RRR, without murmur, rub, gallop, no JVD, S1-S2. Chest wall nontender with palpation. RESP: Clear to auscultation bilaterally. No wheezing or rhonchi. ABD: Soft, NT, ND, no masses, positive bowel tones, obese EXT: 1+ floyd LE edema PSYCH: Appropriate mood and affect. Results - Labs CBC & Chem 7: 02/02/18 11:10 02/02/18 11:10 Laboratory Results - last 24 hr 02/02/18 02/02/18 02/02/18 14:01 17:14 21:14 POC Glucose 209 H Total Creatine Kinase 626 H CK-MB (CK-2) 3.1 CK-MB (CK-2) % 0.5 Troponin I 0.03 0.04 Urine Color Urine Clarity Urine pH Ur Specific [place] Urine Protein Urine Glucose (UA) Urine Ketones Urine Occult Blood Urine Nitrate Urine Bilirubin Urine Urobilinogen Ur Leukocyte Esterase Urine RBC Urine WBC Urine Mucus Ur Microscopic Review Urine Opiates Screen Ur Barbiturates Screen Ur Amphetamines Screen U Benzodiazepines Scrn Urine Cocaine Screen U Cannabinoids Screen 02/03/18 02/03/18 02/03/18 08:18 10:43 10:43 POC Glucose 156 H Total Creatine Kinase CK-MB (CK-2) CK-MB (CK-2) % Troponin I Urine Color Straw Urine Clarity Clear Urine pH 7.0 Ur Specific [place] 1.006 Urine Protein 100 H Urine Glucose (UA) Negative Urine Ketones Negative Urine Occult Blood Small H Urine Nitrate Negative Urine Bilirubin Negative Urine Urobilinogen Less than 2 Ur Leukocyte Esterase Negative Urine RBC 2 Urine WBC Less than 1 Urine Mucus Few H Ur Microscopic Review Not Reportable Urine Opiates Screen Neg Ur Barbiturates Screen Neg Ur Amphetamines Screen Neg U Benzodiazepines Scrn Neg Urine Cocaine Screen Neg U Cannabinoids Screen Neg 02/03/18 12:13 POC Glucose 230 H Total Creatine Kinase CK-MB (CK-2) CK-MB (CK-2) % Troponin I Urine Color Urine Clarity Urine pH Ur Specific [place] Urine Protein Urine Glucose (UA) Urine Ketones Urine Occult Blood Urine Nitrate Urine Bilirubin Urine Urobilinogen Ur Leukocyte Esterase Urine RBC Urine WBC Urine Mucus Ur Microscopic Review Urine Opiates Screen Ur Barbiturates Screen Ur Amphetamines Screen U Benzodiazepines Scrn Urine Cocaine Screen U Cannabinoids Screen - Imaging Impressions Pulmonary Perfusion Imaging 02/02/18 12:28 CONCLUSION: Low probability of pulmonary embolism. Assessment and Plan - Plan 57-year-old male initially admitted to the chest pain center for atypical chest pain. The patient ruled out with 3 sets of negative cardiac enzymes. However his blood pressure remains severely elevated. Hospitalist service consulted to assume care. Chest pain: - Pain could be secondary to demand ischemia from uncontrolled hypertension. Patient normally follows with satellite project site monitor Dr. Rodriguez. Cardiac enzymes so far negative. -Consult his satellite project site monitor for assistance. Unsure if he had any recent ischemic workup - Pain is improved with Narcotics. Hypertensive urgency: - Concerned about his compliance. Seems to have labile mood. Reported suicidal ideation without active plan. -Continue his home medications including Bumex, Cozaar, Procardia and monitor him in this controlled environment. Clonidine as needed. Suicidal ideation: - Patient evaluated by psychiatry. Discussed with Dr. Higgins. No psychiatric admission indicated. Type 2 diabetes: SSI low dose coverage. Follow up with primary care provider upon discharge. Hyperlipidemia Continue atorvastatin. CKD: - Renal functions better compared to baseline - Continue to monitor. Discussed Condition With: [facility] PROGRAM PROJECT ANALYST.
--- NOTE | 2018-02-03 15:09 | P.CONPSY ---
Provisional Diagnosis Admission Date: February 02, 2018 15:48 [place] I.: Adjustment disorder with depressed mood History of Present Illness Service: ER Primary Care Provider: No Primary Care Physician Chief Complaint: Chest and right leg pain History of Present Illness: The patient is a 57 year-old AA man, domiciled with his ex- in [facility], unemployed, on SSI, without no previous psychiatric history, no previous psychiatric hospitalizations, no previous suicidal attempts, extensive medical history of hypertension, diabetes, hyperlipidemia, chronic pain, and CVA with right sided deficit presents to ER for further evaluation of chest pain, gasping for breath that awakens him from sleep and worsening chronic right leg pain. Onset x3 last morning. Awaken each morning with sensation of "gasping for breath" with accompanied chest pain. Location left anterior chest. Characterized as "thumping." Duration 10-15 minutes, reports chest discomfort resolves once breathing stabilizes. The patient has expressed suicidal ideation in the context of increased pain. Consulted to psychiatry to address suicidality and depression. On my psychiatric evaluation today the patient is calm, cooperative, and pleasant. The patient is in a good spirit. He says that he feels much better today. The patient reports that he made a suicidal statement in the context of the frustration of his untreated pain yesterday. The patient states that he has too many reasons to live for, that he is looking forward to get better and be the main that he used to be. He says that he has recently gained back the love of my daughters and he becomes quite emotional talking about it. The patient denies suicidal and homicidal ideation, he denies visual and auditory hallucinations. He is very focused in getting his medical problems treated. He is quite future oriented, oriented x3. No attention deficit, no fluctuation of consciousness. He does report having some difficulty sleeping at night and some anxiety during the day related with his medical problems PPHx: no previous psychiatric history, no previous psychiatric hospitalizations , no previous suicidal attempts PMHx: extensive medical history of hypertension, diabetes, hyperlipidemia, chronic pain, and CVA with right sided Substance Hx: Denies the use of illegal drugs and alcohol. Family Hx: He denies family psychiatric history Social Hx: He was born and raised in [facility], he lives in [facility] with his ex- , father of 2 kids, unemployed, supported by [employer], his highest level of education is 11th grade. 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 - Medical History Medical History: Medical History (Last Updated 02/02/18 @ 17:19 by MYCHAL Nino) CVA (cerebral vascular accident) Depression Diabetes HTN (hypertension) Hyperlipidemia NSTEMI (non-ST elevated myocardial infarction) Renal insufficiency Suicidal ideations - Surgical History Surgical History: Surgical History (Last Reviewed 02/02/18 @ 17:19 by MYCHAL Nino) History of loop recorder - Tobacco History Second Hand Smoke Exposure: No Tobacco Use In Past 30 Days: No Smoking Status: Never smoker - Alcohol History How Often Do You Have a Drink Containing Alcohol: Monthly or less - Substance Use History Substance History: No History of Abuse - Travel History Recent Travel in the [place] Within the Last 8 Weeks: No Recent Travel Out of the Country Within the Last 8 Weeks: No - Immunization History Tetanus Immunization: <5 Years Medications and Allergies Active Medications: Active Medications Acetaminophen (Tylenol) 500 mg PO Q4H PRN PRN Reason: HEADACHE Aspirin (Aspirin) 325 mg PO DAILY [facility] Last Admin: 02/03/18 08:11 Dose: 325 mg Atorvastatin Calcium (Lipitor) 80 mg PO DAILY [facility] Last Admin: 02/03/18 08:12 Dose: 80 mg Bumetanide (Bumex) 1 mg PO DAILY [facility] Last Admin: 02/03/18 08:12 Dose: 1 mg Carvedilol (Coreg) 12.5 mg PO BID [facility] Last Admin: 02/03/18 08:13 Dose: 12.5 mg Clonidine HCl (Catapres) 0.2 mg PO Q6H PRN PRN Reason: SYS BP GREATER THAN 180 [facility] Last Admin: 02/03/18 04:49 Dose: 0.2 mg Dextrose (D50w Vial) 50 ml IV.PUSH UNSCH PRN PRN Reason: PER HYPOGLYCEMIA PROTOCOL Gabapentin (Neurontin) 600 mg PO TID [facility] Last Admin: 02/03/18 13:44 Dose: 600 mg Glucagon (Glucagon Inj) 1 mg OTHER PRN PRN PRN Reason: for Hypoglycemia Protocol Insulin Aspart (Novolog Insulin Correctional Sugar Inj) 0 unit SQ ACHS [facility]; Protocol Last Admin: 02/03/18 13:44 Dose: 3 unit Losartan Potassium (Cozaar) 100 mg PO DAILY [facility] Last Admin: 02/03/18 08:12 Dose: 100 mg Morphine Sulfate (Morphine Inj) 4 mg IV.PUSH Q4H PRN PRN Reason: Acute Pain 3-10 Nifedipine (Procardia Xl) 90 mg PO DAILY [facility] Last Admin: 02/03/18 08:12 Dose: 90 mg Nitroglycerin (Nitrostat Sl) 0.4 mg SL Q5M PRN PRN Reason: CHEST PAIN Ondansetron HCl (Zofran Inj) 4 mg IV.PUSH Q6H PRN PRN Reason: NAUSEA Sodium Chloride (Ns Flush) 2 ml IV.FLUSH UNSCH PRN PRN Reason: FLUSH AFTER USING IV ACCESS Sodium Chloride (Ns Flush) 2 ml IV.FLUSH BID [facility] Last Admin: 02/03/18 08:13 Dose: 2 ml Sodium Chloride (Ns Flush) 2 ml IV.FLUSH PRN PRN PRN Reason: FLUSH AFTER USING IV ACCESS Allergies Allergy/AdvReac Type Severity Reaction Status Date / Time No Known Allergies Allergy Verified 02/02/18 10:45 Home Medications Medication Instructions Recorded Confirmed Type apixaban [Eliquis] 2.5 mg PO BID 02/02/18 02/02/18 History atorvastatin 80 mg PO DAILY 02/02/18 02/02/18 History bumetanide 1 mg PO DAILY 02/02/18 02/02/18 History carvedilol 12.5 mg PO BID 02/02/18 02/02/18 History gabapentin 600 mg PO TID 02/02/18 02/02/18 History insulin aspart U-100 [Novolog 21 unit SUBCUT BID 02/02/18 02/02/18 History U-100 Insulin aspart] losartan 100 mg PO DAILY 02/02/18 02/02/18 History nifedipine 90 mg PO DAILY 02/02/18 02/02/18 History Exam Vital signs: Vital Signs 02/02/18 15:28 02/02/18 16:27 02/02/18 17:21 Temperature Pulse Rate 68 68 66 Respiratory Rate 21 21 Blood Pressure 186/88 H 178/91 H 171/89 H Pulse Oximetry 97 98 99 02/02/18 18:24 02/02/18 20:00 02/03/18 00:00 Temperature 98.1 F 98.5 F 97.9 F Pulse Rate 73 65 68 Respiratory Rate 20 19 17 Blood Pressure 188/88 H 184/94 H 154/82 H Pulse Oximetry 98 95 98 02/03/18 04:00 02/03/18 08:00 02/03/18 09:00 Temperature 98.3 F 97.7 F Pulse Rate 70 64 65 Respiratory Rate 19 16 Blood Pressure 192/100 H 190/94 H Pulse Oximetry 100 99 02/03/18 14:39 Temperature 98.6 F Pulse Rate 69 Respiratory Rate 18 Blood Pressure 159/87 H Pulse Oximetry 98 Intake & Output 02/02/18 02/03/18 02/03/18 18:59 06:59 18:59 Output Total 600 / 600 Balance -600 / -600 Weight 112 kg 114.2 kg Output: Urine 600 / 600 Other: Date of Last Bowel Movement 02/01/18 02/01/18 Weight On Admission 112 kg Narrative: No tremors, no EPS, no withdrawal symptoms, no psychomotor agitation or retardation, no stiffness, no gait disturbance, no catatonia - Constitutional no acute distress, mild distress - Routine HEENT Exam Head: Present: normocephalic, atraumatic Eye: Present: EOMI ENT: Present: mucous membranes moist Mental Status Examination Appearance: Appropriate Consciousness: Alert Orientation: x4 Motor Activity: Normal gait Speech: Unremarkable Language: Adequate Fund of Knowledge: Adequate Attention and Concentration: Adequate Memory: Unremarkable Mood: Appropriate Affect: Appropriate Thought Process & Associations: Intact Thought Content: Appropriate Hallucination Type: None Delusion Type: None Suicidal Ideation: No Suicidal Plan: No Suicidal Intention: No Homicidal Ideation: No Homicidal Plan: No Homicidal Intention: No Insight: Adequate Judgment: Adequate Assessment and Plan - Assessment (1) Acute adjustment disorder with depressed mood Code(s): F43.21 - Adjustment disorder with depressed mood Status: Acute - Plan Plan: On my psychiatric evaluation today the patient presents calm, cooperative, pleasant and in a good spirit. The patient reports feeling much better today, in a good mood, denies anhedonia, denies hopelessness, denies helplessness, denies worthlessness, he denies suicidal and homicidal ideation, he denies visual and auditory hallucinations. The patient is logical, coherent, relevant. Oriented x3. He is future oriented, motivated to continue medical treatment. Apparently recent suicidal statement was in the context of frustration and pain. He does report having some difficulty to sleep at night and anxiety during the day especially during this hospitalization. Patient can be medicated with clonazepam 0.5 mg every 8 hours as needed anxiety, trazodone 50 mill grams at bedtime for insomnia. No admission recommended. Support, motivational psych education provided. Justification for Continued Inpatient Stay: No admission indicated.
--- NOTE | 2018-02-03 15:50 | US ---
EXAM DATE: 02/03/2018 3:45 PM EST AGE/SEX: 57 years / Male INDICATIONS: Increased BUN/Creatinine. CLINICAL DATA: This is the patient's initial encounter. Patient reports that signs and symptoms have been present for 2 days and indicates a pain score of 1/10. MEDICAL/SURGICAL HISTORY: Diabetes. Hypertension. Chronic obstructive pulmonary disease. CVA . Hyperlipidemia. NSTEMI. Renal insufficiency. Suicidal ideations. . Loop recorder placement. COMPARISON: No prior exams available for comparison. MEASUREMENTS: Right Kidney:__11.5 x 5.3 x 2.5 cm Left Kidney:__9.8 x 5.6 x 1.5 cm FINDINGS: Right Kidney: Normal echotexture and cortical thickness. No mass or hydronephrosis. Left Kidney: Normal echotexture and cortical thickness. No mass or hydronephrosis. Bladder: Within normal limits given the degree of distension. Other: None. CONCLUSION: 1. Negative renal sonogram. Electronically signed by: Umang Coello MD 02/03/2018 3:49 PM EST
--- NOTE | 2018-02-03 17:01 | ECG ---
Date Performed: 02/03/2018 Time Performed: 09:34:41 PTAGE: 57 years EKG: SINUS BRADYCARDIA WITH FIRST DEGREE AV BLOCK RIGHT BUNDLE BRANCH BLOCK LEFT ANTERIOR FASCIC ULAR BLOCK POSSIBLE ANTERIOR MYOCARDIAL INFARCTION ABNORMAL ECG Since PREVIOUS TRACING , no significant change noted DOCTOR: Eboni Fernandez Interpretating Date/Time 02/03/2018 17:00:25
--- NOTE | 2018-02-03 17:02 | ECG ---
Date Performed: 02/02/2018 Time Performed: 16:47:51 PTAGE: 57 years EKG: Sinus rhythm ARM LEADS REVERSED ATYPICAL ECG PREVIOUS TRACING : 02/02/2018 14.02 DOCTOR: Eboni Fernandez Interpretating Date/Time 02/03/2018 17:02:13
--- NOTE | 2018-02-03 17:03 | ECG ---
Date Performed: 02/02/2018 Time Performed: 14:02:09 PTAGE: 57 years EKG: Sinus rhythm MODERATE VOLTAGE CRITERIA FOR LVH, CONSIDER NORMAL VARIANT NONSPECIFIC T-WAVE ABNORMALITY BORDERLINE ECG Since PREVIOUS TRACING , no significant change noted PREVIOUS TRACIN02/02/2018 10.52 DOCTOR: Eboni Fernandez Interpretating Date/Time 02/03/2018 17:03:07
--- NOTE | 2018-02-03 18:52 | MB ---
cc: Les Raymond MD DATE: 02/03/2018 REASON FOR CONSULTATION: Uncontrolled hypertension and choking feeling at night. HISTORY OF PRESENT ILLNESS: This is a 57-year-old man who is a patient of Dr. Holguin and Dr. Cong Otero. The patient is known to have longstanding hypertension, diabetes, hyperlipidemia, morbid obesity, previous stroke with right-sided weakness and chronic right leg pain. He has had a loop recorder in the past. He is on Eliquis and I am assuming this is for paroxysmal atrial fibrillation, but I am having difficulty finding any records to confirm this. He came into the hospital with complaints that he does not have any chest pain during the day, but at night, he wakes up with a sensation of choking and gasping for breath with his heart thumping. Once he is awake for a short time, the symptoms subside. He does not have any of these symptoms during the day. It is only at night when he is sleeping. He has 2 sisters with sleep apnea. He naps frequently. He has daytime somnolence. He has never been tested for sleep apnea, however, before. He does not describe any symptoms that sound typical of angina to me. He does have multiple cardiac risk factors. PAST MEDICAL HISTORY: Includes stroke, chronic kidney disease, suspect he has had paroxysmal atrial fibrillation, which is why he is on Eliquis and why he had a loop recorder, diabetes, morbid obesity, hyperlipidemia, hypertension. PAST SURGICAL HISTORY: Includes loop recorder implantation. SOCIAL HISTORY: Nonsmoker. ALLERGIES: NONE KNOWN. REVIEW OF SYSTEMS: Otherwise negative. PHYSICAL EXAMINATION: GENERAL: Reveals a morbidly obese, pleasant male in no acute distress. VITAL SIGNS: Charted. He has been markedly hypertensive, including blood pressures over 200. This has been frequent. This is how he frequently presents in terms of his blood pressure. HEENT: Unremarkable. NECK: No JVD. No bruits. CHEST: Clear to auscultation. CARDIAC: Soft S1, S2. Regular rate and rhythm. No murmurs or gallops. ABDOMEN: Obese, soft, nontender. EXTREMITIES: Reveal 1 to 2+ pitting edema, right greater than left. LABORATORY DATA: Charted. His creatinine is significantly elevated. Troponins have been normal. He did have a troponin elevation of 0.72 on 03/16/2016 for which he was treated medically. BNP is normal at 86, arguing against any CHF. His weight is 121.6 kg. He has had multiple radiographic studies including a negative venous Doppler, ventilation perfusion scan, abdomen and bladder ultrasound and chest x-ray. Creatinine is significantly elevated at 1.9, but this is chronic for him. Troponins were 0.03, 0.03 and 0.04, all negative. Hematocrit is 38.9. IMPRESSION: The waking up at night with a choking sensation and the thumping in his heartbeat sounds to me fairly classic for sleep apnea. He has 2 sisters with sleep apnea and he is morbidly obese. He only has the symptoms at night. I think this is likely the cause of his symptoms. He also has uncontrolled hypertension. RECOMMENDATIONS: I am changing the clonidine to 0.2 mg t.i.d. in addition to his beta toni, calcium toni, diuretic and angiotensin toni. I am consulting Dr. Connors for his sleep apnea. Once his blood pressure is controlled, he can be discharged and followed up as an outpatient by Dr. Holguin. MD JENNIFER Covarrubias/gary , 05:48 PM , 05:57 PM
[2018-02-04 08:16] VITALS: RESP 16; O2SAT 98
--- NOTE | 2018-02-04 08:32 | P.PNCA ---
Subjective Interval history: No complaints Medications and Allergies Active Medications: Active Medications Acetaminophen (Tylenol) 500 mg PO Q4H PRN PRN Reason: HEADACHE Aspirin (Aspirin) 325 mg PO DAILY [facility] Last Admin: 02/03/18 08:11 Dose: 325 mg Atorvastatin Calcium (Lipitor) 80 mg PO DAILY [facility] Last Admin: 02/03/18 08:12 Dose: 80 mg Bumetanide (Bumex) 1 mg PO DAILY [facility] Last Admin: 02/03/18 08:12 Dose: 1 mg Carvedilol (Coreg) 12.5 mg PO BID [facility] Last Admin: 02/03/18 23:50 Dose: 12.5 mg Clonidine HCl (Catapres) 0.2 mg PO Q8HR [facility] Last Admin: 02/04/18 08:21 Dose: Not Given Dextrose (D50w Vial) 50 ml IV.PUSH UNSCH PRN PRN Reason: PER HYPOGLYCEMIA PROTOCOL Gabapentin (Neurontin) 600 mg PO TID [facility] Last Admin: 02/03/18 17:28 Dose: 600 mg Glucagon (Glucagon Inj) 1 mg OTHER PRN PRN PRN Reason: for Hypoglycemia Protocol Insulin Aspart (Novolog Insulin Correctional Sugar Inj) 0 unit SQ [facility]; Protocol Last Admin: 02/03/18 23:51 Dose: Not Given Losartan Potassium (Cozaar) 100 mg PO DAILY [facility] Last Admin: 02/03/18 08:12 Dose: 100 mg Morphine Sulfate (Morphine Inj) 4 mg IV.PUSH Q4H PRN PRN Reason: Acute Pain 3-10 Nifedipine (Procardia Xl) 90 mg PO DAILY [facility] Last Admin: 02/03/18 08:12 Dose: 90 mg Nitroglycerin (Nitrostat Sl) 0.4 mg SL Q5M PRN PRN Reason: CHEST PAIN Ondansetron HCl (Zofran Inj) 4 mg IV.PUSH Q6H PRN PRN Reason: NAUSEA Sodium Chloride (Ns Flush) 2 ml IV.FLUSH UNSCH PRN PRN Reason: FLUSH AFTER USING IV ACCESS Sodium Chloride (Ns Flush) 2 ml IV.FLUSH BID [facility] Last Admin: 02/03/18 23:50 Dose: 2 ml Sodium Chloride (Ns Flush) 2 ml IV.FLUSH PRN PRN PRN Reason: FLUSH AFTER USING IV ACCESS Allergies Allergy/AdvReac Type Severity Reaction Status Date / Time No Known Allergies Allergy Verified 02/02/18 10:45 Home Medications Medication Instructions Recorded Confirmed Type apixaban [Eliquis] 2.5 mg PO BID 02/02/18 02/02/18 History atorvastatin 80 mg PO DAILY 02/02/18 02/02/18 History bumetanide 1 mg PO DAILY 02/02/18 02/02/18 History carvedilol 12.5 mg PO BID 02/02/18 02/02/18 History gabapentin 600 mg PO TID 02/02/18 02/02/18 History insulin aspart U-100 [Novolog 21 unit SUBCUT BID 02/02/18 02/02/18 History U-100 Insulin aspart] losartan 100 mg PO DAILY 02/02/18 02/02/18 History nifedipine 90 mg PO DAILY 02/02/18 02/02/18 History Physical Exam Vital signs: Vital Signs 02/03/18 09:00 02/03/18 14:39 02/03/18 19:43 Temperature 98.6 F 99.0 F Pulse Rate 65 69 68 Respiratory Rate 18 18 Blood Pressure 159/87 H 147/80 H Pulse Oximetry 98 97 02/03/18 23:23 02/04/18 03:00 02/04/18 03:49 Temperature 98.8 F 97.7 F Pulse Rate 63 62 59 L Respiratory Rate 18 18 Blood Pressure 148/83 H 152/82 H Pulse Oximetry 97 96 02/04/18 08:00 Temperature 97.8 F Pulse Rate 62 Respiratory Rate 16 Blood Pressure 141/80 H Pulse Oximetry 98 Intake & Output 02/03/18 02/04/18 02/04/18 18:59 06:59 18:59 Intake Total 500 / 500 Balance 500 / 500 Intake: Oral 500 / 500 Narrative: Alert Chest clear CV S1S2 RRR Edema 1+ right O left BP better Results 02/02/18 11:10 02/02/18 11:10 Cardiac Enzymes 02/02/18 02/02/18 02/02/18 Range/Units 11:10 11:56 14:01 AST 29 (15-37) U/L CK-MB (CK-2) (0.5-3.6) ng/mL Troponin I 0.03 0.03 (0.02-0.05) ng/mL B-Natriuretic Peptide 86 (0-100) pg/mL 02/02/18 Range/Units 17:14 AST (15-37) U/L CK-MB (CK-2) 3.1 (0.5-3.6) ng/mL Troponin I 0.04 (0.02-0.05) ng/mL B-Natriuretic Peptide (0-100) pg/mL Coagulation 02/02/18 Range/Units 11:56 B-Natriuretic Peptide 86 (0-100) pg/mL CBC 02/02/18 Range/Units 11:10 WBC 7.3 (4.0-11.0) th/mm3 RBC 4.51 (4.50-5.90) mil/mm3 Hgb 12.9 L (13.0-17.0) gm/dL Hct 38.9 L (39.0-51.0) % Plt Count 140 L (150-450) th/mm3 Neut # (Auto) 5.1 (1.8-7.7) th/mm3 Lymph # (Auto) 1.5 (1.0-4.8) th/mm3 [place] # (Auto) 0.5 (0.0-0.9) th/mm3 Eos # (Auto) 0.2 (0.0-0.4) th/mm3 Baso # (Auto) 0.0 (0.0-0.2) th/mm3 Comprehensive Metabolic Panel 02/02/18 Range/Units 11:10 Sodium 143 (136-145) meq/L Potassium 4.6 (3.5-5.1) meq/L Chloride 108 H (98-107) meq/L Carbon Dioxide 27.0 (21.0-32.0) meq/L BUN 27 H (7-18) mg/dL Creatinine 1.90 H (0.60-1.30) mg/dL Calcium 8.8 (8.5-10.1) mg/dL AST 29 (15-37) U/L ALT 27 (12-78) U/L Alkaline Phosphatase 78 (45-117) U/L Total Protein 7.7 (6.4-8.2) g/dL Albumin 3.2 L (3.4-5.0) g/dL Intake and Output 02/03/18 02/04/18 02/04/18 22:59 06:59 14:59 Intake Total 500 / 500 Balance 500 / 500 Intake: Oral 500 / 500 - Imaging and Cardiology Imaging: Impressions Chest X-Ray 02/02/18 11:05 CONCLUSION: 1. No acute abnormality or significant interval change. Venous Doppler Study 02/02/18 12:10 CONCLUSION: 1. No sonographic evidence for lower extremity DVT. Pulmonary Perfusion Imaging 02/02/18 12:28 CONCLUSION: Low probability of pulmonary embolism. Abdomen/Bladder Ultrasound 02/03/18 00:00 CONCLUSION: 1. Negative renal sonogram. Assessment and Plan - Assessment (1) Morbid obesity Code(s): E66.01 - Morbid (severe) obesity due to excess calories Status: Acute (2) Sleep apnea Code(s): G47.30 - Sleep apnea, unspecified Status: Acute (3) Hypertension Code(s): I10 - Essential (primary) hypertension Status: Acute - Plan Symptoma are classic for sleep apnea. BP now better. OK with me to Discharge after Dr. Dory hoang. (3) Hypertension Qualifiers: Hypertension type: unspecified Qualified Code(s): I10 - Essential (primary) hypertension
[2018-02-04] MEDS: Aspirin 325 MG Tablet PO SCH (08:36)
[2018-02-04] MEDS: Carvedilol 12.5 MG Tablet PO SCH (08:37)
[2018-02-04] MEDS: Gabapentin 300 MG Capsule PO SCH ×2 (08:38→13:20)
[2018-02-04] MEDS: Insulin NovoLOG Aspart Correctional Sugar Inj SQ SCH ×2 (09:28→13:20)
--- NOTE | 2018-02-04 10:23 | P.DS ---
Date of admission: 02/02/18 15:48 Primary care physician: No Primary Care Physician Brief History from admission: HPI as documented by the admitting provider 57 year old male with history of hypertension, diabetes, hyperlipidemia, chronic pain, and CVA with right sided deficit presents to ER for further evaluation of chest pain, gasping for breath that awakens him from sleep and worsening chronic right leg pain. Onset x3 last morning. Awaken each morning with sensation of "gasping for breath" with accompanied chest pain. Location left anterior chest. Characterized as "thumping." Duration 10-15 minutes, reports chest discomfort resolves once breathing stabilizes. No associated symptoms of nausea, vomiting, dyspnea, or diaphoresis. Denies other times of chest discomfort or dyspnea. Endorses similar sensation of dyspnea/chest discomfort "awhile ago" states "I didn't think much of it." In regards of right leg pain, endorses chronic right leg for "at least one year." States he does not have the money for ordered injection for chronic leg pain. States he is prescribed Tramadol for pain, but "it does work at all." Patient is tearful during exam, appears depressed. Reports currently situational stress over the last month. Endorses recent suicidal ideations without plan. No recent illness, injury, or fever. Intermittent chills. Past cardiac testing No recent cardiac testing. Reports nuclear cardiac testing approximately one year ago reports to be normal. Denies ever having a cardiac catheterization. Follows with Dr. Guillen. Due to multiple insurance changes, has not recently seen a air pollution analyst. Documented NSTEMI February 2016, felt to be related to hypertension 03/17/2016 Echocardiogram-systolic function normal. EF 55-60%. Social history Known hypertension, hyperlipidemia, and diabetes. No known CAD, NSTEMI 2016 possibly related to elevated blood pressure. Ambulated with a cane. Recently from and in transition to moving in with sister. Patient update on day of discharge: Patient reports he is feeling much better today. Blood pressure is controlled. No chest pain or shortness of breath. DS: Medications - Discharge Medications Prescriptions: clonidine HCl [Catapres] 0.2 mg PO Q8HR 30 Days tab DS: Summary Hospital Course: 57-year-old male initially admitted to the chest pain center for atypical chest pain. The patient ruled out with 3 sets of negative cardiac enzymes. However his blood pressure remains severely elevated. Hospitalist service consulted to assume care. Evaluation and treatment course detailed below: Chest pain: Resolved -Likely secondary to demand ischemia from uncontrolled hypertension. Patient normally follows with air pollution analyst Dr. Rodriguez. Cardiac enzymes so far negative. -Appreciate air pollution analyst input. Pain resolved with better blood pressure control. Sleep apnea as probable contributing factor. Suspected sleep apnea: - The patient was evaluated by pulmonology. He will follow-up outpatient for sleep study. TSH is pending. Hypertensive urgency: - Concerned about his compliance. Seems to have labile mood. Reported suicidal ideation without active plan. -Continue his home medications including Bumex, Cozaar, Procardia. Clonidine added per cardiology with better controlled. He will follow-up closely with cardiology and PCP outpatient. Suicidal ideation: - Patient evaluated by psychiatry. Discussed with Dr. Higgins. No psychiatric admission indicated. Type 2 diabetes: SSI low dose coverage. Follow up with primary care provider upon discharge. Hyperlipidemia Continue atorvastatin. CKD: - Renal functions better compared to baseline - Continue to monitor. - Time Spent with Patient Total time spent providing and/or coordinating discharge services: Less than 30 minutes - Quality: VTE Deep Vein Thrombosis/Pulmonary Embolism Present on Admission: No Exam Vital signs: Vital Signs 02/03/18 14:39 02/03/18 19:43 02/03/18 23:23 Temperature 98.6 F 99.0 F 98.8 F Pulse Rate 69 68 63 Respiratory Rate 18 18 18 Blood Pressure 159/87 H 147/80 H 148/83 H Pulse Oximetry 98 97 97 02/04/18 03:00 02/04/18 03:49 02/04/18 08:00 Temperature 97.7 F 97.8 F Pulse Rate 62 59 L 62 Respiratory Rate 18 16 Blood Pressure 152/82 H 141/80 H Pulse Oximetry 96 98 02/04/18 08:41 Temperature Pulse Rate Respiratory Rate Blood Pressure Pulse Oximetry 98 Intake & Output 02/03/18 02/04/18 02/04/18 18:59 06:59 18:59 Intake Total 500 / 500 Balance 500 / 500 Intake: Oral 500 / 500 Narrative: GENERAL: No acute distress. CV: RRR, without murmur, rub, gallop, no JVD, S1-S2. Chest wall nontender with palpation. RESP: Clear to auscultation bilaterally. No wheezing or rhonchi. ABD: Soft, NT, ND, no masses, positive bowel tones, obese EXT: 1+ floyd LE edema PSYCH: Appropriate mood and affect. Results Procedures completed during hospitalization: None Labs on day of discharge: Labs from last 24 hours 02/04/18 02/03/18 02/03/18 08:33 23:33 17:27 POC Glucose 175 H 133 H 154 H Urine Color Urine Clarity Urine pH Ur Specific [place] Urine Protein Urine Glucose (UA) Urine Ketones Urine Occult Blood Urine Nitrate Urine Bilirubin Urine Urobilinogen Ur Leukocyte Esterase Urine RBC Urine WBC Urine Mucus Ur Microscopic Review Urine Opiates Screen Ur Barbiturates Screen Ur Amphetamines Screen U Benzodiazepines Scrn Urine Cocaine Screen U Cannabinoids Screen 02/03/18 02/03/18 02/03/18 12:13 10:43 10:43 POC Glucose 230 H Urine Color Straw Urine Clarity Clear Urine pH 7.0 Ur Specific [place] 1.006 Urine Protein 100 H Urine Glucose (UA) Negative Urine Ketones Negative Urine Occult Blood Small H Urine Nitrate Negative Urine Bilirubin Negative Urine Urobilinogen Less than 2 Ur Leukocyte Esterase Negative Urine RBC 2 Urine WBC Less than 1 Urine Mucus Few H Ur Microscopic Review Not Reportable Urine Opiates Screen Neg Ur Barbiturates Screen Neg Ur Amphetamines Screen Neg U Benzodiazepines Scrn Neg Urine Cocaine Screen Neg U Cannabinoids Screen Neg - Impressions ITS Impressions Chest X-Ray 02/02/18 11:05 CONCLUSION: 1. No acute abnormality or significant interval change. Venous Doppler Study 02/02/18 12:10 CONCLUSION: 1. No sonographic evidence for lower extremity DVT. Pulmonary Perfusion Imaging 02/02/18 12:28 CONCLUSION: Low probability of pulmonary embolism. Abdomen/Bladder Ultrasound 02/03/18 00:00 CONCLUSION: 1. Negative renal sonogram. Discharge Plan - Discharge Disposition Patient Disposition: Discharge Home - Discharge Condition Condition: Stable - Discharge Order Discharge Orders: Discharge Order (Routine); Ordered 02/04/18 Ordered By: Hilda Stover - Physicians Team Primary Care Provider: Primary Care Audra Munoz Attending Provider: Hilda Stover Other Providers: Hilda Stover MD ; Zak Crespo ; Edson Higgins MD ; Les Raymond MD ; Reilly Quinones MD
--- NOTE | 2018-02-04 11:34 | MB ---
cc: Dory Connors MD DATE: 02/04/2018 REASON FOR CONSULTATION: Sleep apnea. HISTORY OF PRESENT ILLNESS: Mr. Rogers is a 57-year-old male with a known history of hypertension, hyperlipidemia, diabetes mellitus, previous CVA who comes into the emergency room complaining of chest pain, evaluated by cardiology at present. The patient was told that he snores loudly while sleeping. He did wake up on occasion with a choking sensation. He is generally tired during the daytime. Denies history of drop attacks, hallucination, or sleep paralysis. PAST MEDICAL HISTORY: Diabetes mellitus, hypertension, hyperlipidemia, CVA with right-sided weakness, renal insufficiency, history of mood disorder, namely depression, coronary artery disease, non-ST elevated myocardial infarction. SOCIAL HISTORY: Does not smoke, never did. Drinks alcohol on rare occasion. Does not use drugs. FAMILY HISTORY: Noncontributory. MEDICATIONS: Include: 1. Tylenol. 2. Aspirin. 3. Catapres. REVIEW OF SYSTEMS: A 12-point review of systems as per HPI. Past history otherwise negative. HOME MEDICATIONS: Include: 1. Eliquis. 2. Atorvastatin. 3. Ranitidine. 4. Carvedilol. 5. Gabapentin. 6. Insulin. 7. Losartan. 8. Nifedipine. PHYSICAL EXAMINATION: GENERAL: The patient is alert. VITAL SIGNS: Temperature 98, pulse 80, respirations 18, blood pressure 150/80. Oxygen saturation 98% on room air. HEENT: Unremarkable. Eyes without icterus. NECK: Without adenopathy, without enlargement. Throat: Narrow oropharynx. CHEST: No dullness to percussion. Clear to auscultation. HEART: PMI not appreciated. S1, S2 audible. No murmur. No rub. ABDOMEN: Lax audible bowel sounds. PSYCHIATRIC: No clubbing, cyanosis, or edema. LABORATORY DATA: White count 7.3, hemoglobin 12, hematocrit 38, platelets are 140,000. Sodium 140, potassium 4.6, BUN 27, creatinine 1.9. Chest x-ray: No acute abnormality seen. Ultrasound of lower extremities: No DVT. Perfusion lung scan low probability of pulmonary embolism. IMPRESSION: 1. Sleep disordered breathing, obstructive sleep apnea, suspect. 2. Atypical chest pain. Follow up cardiology. 3. Hypertension. 4. Diabetes mellitus, on insulin therapy. 5. Depression. 6. Renal insufficiency. 7. Hyperlipidemia. PLAN: The patient has symptomatology highly suggestive of obstructive sleep apnea and will require polysomnographic evaluation, which will be undertaken upon his discharge. Meanwhile, we will check his pulmonary function as well as thyroid function. Upon discharge, he should have an appointment at my office for further sleep evaluation. Dory Connors MD WWW/ts , 10:09 AM , 10:19 AM
[2018-02-04 11:58] VITALS: BP 131/69; PULSE 63; TEMP 98
== END 2018-02-04 14:30 | disposition home or self-care (01) ==
LOC: NEPE 10:39 → NEDA 10:39 → NEPGCP 18:23
PROVIDERS: ADMIT Family Medicine; ATTEND Family Medicine